=== PATIENT | male | born 1960 | race Caucasian/White ===

== ENCOUNTER 2021-02-24 21:35 | Emergency (ER) | payer OTHER, SELFPAY ==
--- NOTE | ~2021-02-24 | CT_ITS ---
EXAMINATION: CT brain wo con EXAM DATE: 02/24/2021 22:31 INDICATION: Trauma, subarachnoid hemorrhage. TECHNIQUE: Spiral CT of the head was performed without contrast. Axial, coronal and sagittal images were reviewed. The dose-length product (DLP) for this examination was 605.33 mGy-cm. The exposure w as tailored according to patient size, and iterative reconstruction (ASIR) was used as additional dos e reduction technique. There is no prior study for comparison. FINDINGS: Small acute subarachnoid hemorrhage overlying the right frontal lobe near the vertex. Locat ion suggests this is most likely posttraumatic etiology. No other regions of acute intracranial hemor rhage. No extra-axial collections or obstructive hydrocephalus. Mild cerebral atrophy. No brain mass. IMPRESSION: Small acute right subarachnoid hemorrhage, location suggesting traumatic etiology. STAT Rad radiologist phoned, discussed this case with clinician as per documentation in their report, which was faxed and scanned into PACS with this exam. Reviewed, dictated and finalized at location [facility]. IMPRESSION: Small acute right subarachnoid hemorrhage, location suggesting tra umatic etiology. STAT Rad radiologist phoned, discussed this case with clinician as per document ation in their report, which was faxed and scanned into PACS with this exam.
--- NOTE | ~2021-02-24 | XR_ITS ---
EXAMINATION: XR wrist RT min 3V EXAM DATE: 02/24/2021 22:28 INDICATION: Trauma, anteromedial wrist pain. TECHNIQUE: Right wrist frontal, frontal with ulnar deviation, oblique and lateral projections obtain ed and reviewed. There is no prior study for comparison. FINDINGS: Right wrist scapholunate joint space is maintained. Possible acute closed posttraumatic tr iquetral fracture identified on the lateral projection. There is some swelling overlying the wrist. P lease clinically correlate. No other suspicious findings. IMPRESSION: Possible right triquetral fracture. I discussed possible fracture with emergency room physician Dr. Corrales at 02/25/2021 08:17 CDT. Stefanie ent was transferred to another acute care facility for subarachnoid hemorrhage. Reviewed, dictated and finalized at location [facility]. IMPRESSION: Possible right triquetral fracture. I discussed possible fracture with emergency room physician Dr. Corrales at 02/04 08:17 CDT. Patient was transferred to another acute care facility for dooley barachnoid hemorrhage.
[2021-02-24 21:39] VITALS: BP 166/91; PULSE 66; RESP 17; TEMP 36.3; O2SAT 99
--- NOTE | 2021-02-24 22:49 | ED.HEATRA ---
HPI - Head Injury General Chief complaint: Head Injury Stated complaint: Right wrist pain, head injury s/p fall Time Seen by Provider: 02/24/21 22:01 History of Present Illness HPI Narrative: Patient is a 61-year-old male who presents ER status post fall. Patient was playing slip and slide kickball when he lost his footing and fell backwards striking his head and hurting his right wrist. Reports pain and swelling to the dorsal aspect of the wrist. Has increased pain with extension but not with flexion. No numbness or tingling. Patient does take Xarelto given his history of atrial fibrillation. Reports he has developed some very mild headache and has taken Tylenol for this. He has had no loss of consciousness/nausea/vomiting/visual change. Related Data Home Medications Medication Instructions Recorded Confirmed flecainide 02/24/21 metoprolol succinate PO 02/24/21 rivaroxaban [Xarelto] mg 02/24/21 rosuvastatin [Crestor] mg 02/24/21 Allergies Allergy/AdvReac Type Severity Reaction Status Date / Time No Known Drug Allergies Allergy Unknown Unknown Verified 02/24/21 21:51 Review of Systems Review of Systems: All systems reviewed & are unremarkable except as noted in HPI and below Constitutional: Constitutional: Denies chills, Denies fever(s) and Denies weakness Eyes: Eyes: Denies change in vision Respiratory: Respiratory: Denies cough and Denies dyspnea Gastrointestinal: Gastrointestinal: Denies abdominal pain, Denies nausea and Denies vomiting Musculoskeletal: Musculoskeletal: Reports arthralgias, Reports joint swelling and Denies muscle cramps Neurologic: Denies syncope, Reports headache(s), Denies focal weakness and Denies numbness PMFSH Past Medical History Medical History (Updated 02/24/21 @ 22:55 by César Singh MD) Atrial fibrillation Hyperlipidemia Hypertension Surgical History Surgical History (Updated 02/24/21 @ 22:50 by César Singh MD) History of cardiac radiofrequency ablation Social History Social History (Updated 02/24/21 @ 22:50 by César Singh MD) Alcohol intake: current Gender identity (if verbalized by the patient): Male Exam Narrative: GENERAL: Well-appearing, well-nourished, and in no acute distress. HEAD: Normocephalic, atraumatic. Small abrasion front aspect of the scalp within the hair. EYES: PERRL and EOMI. CHEST: Clear to auscultation. No respiratory distress. HEART: Regular rate and rhythm. Normal peripheral pulses. ABDOMEN: Soft, nontender, nondistended. EXTREMITIES: Swelling dorsal aspect right wrist with limitation in extension. No snuff box tenderness. Normal strength. SKIN: Warm, dry, no rash. NEURO: No focal deficits. Alert and oriented x3. PSYCH: Normal mood and affect. Course Reevaluation(s) Reevaluation #1: Spoke with Dr. Knight [facility]. Accepted patient for transfer and requests we preform reversal of Xarelto prior to sending patient to them. Date: 02/24/21 Time: 23:12 Vital Signs Vital signs: Vital Signs Temperature 97.4 F L 02/24/21 21:39 Pulse Rate 66 02/24/21 21:39 Respiratory Rate 17 02/24/21 21:39 Blood Pressure 166/91 H 02/24/21 21:39 Pulse Oximetry 99 02/24/21 21:39 Temperature 97.4 F L 02/24/21 21:39 Pulse Rate 61 02/25/21 03:06 Respiratory Rate 20 02/25/21 03:06 Blood Pressure 122/85 02/25/21 03:06 Pulse Oximetry 98 02/25/21 03:06 MDM - Head Injury Lab Data Result diagrams: 02/24/21 23:17 02/24/21 23:17 Labs: Lab Results 02/24/21 02/24/21 02/24/21 Range/Units 23:17 23:17 23:17 WBC 8.0 (4.5-10.0) K/mm3 RBC 4.17 L (4.6-6.20) M/mm3 Hgb 12.7 L (14.0-18.0) g/dL Hct 38.0 L (42.0-52.0) % MCV 91.1 (80-100) fl MCH 30.5 (26-34) pg MCHC 33.4 (32-36) g/dl RDW 12.9 (11.5-14.5) % Plt Count 209 (150-375) k/mm3 MPV 8.4 (7.4-10.4) fl Immature Gran % (Auto) 0.5 (0-0.5) % Neut % (Auto)
[2021-02-24 23:11] VITALS: BP 159/80; PULSE 65; RESP 25; O2SAT 98
[2021-02-24 23:32] LABS: Basophils Percent Auto 0.4 % (0.2-1.2); Eosinophils Absolute Auto 0.2 K/mm3 (0-0.3); Eosinophils Percent Auto 2.1 % (0-4.4); Hemoglobin 12.7 g/dL (14.0-18.0); Immature Granulocyte Absolute 0.04 K/mm3 (0.00-0.031); Immature Granulocyte Percent A 0.5 % (0-0.5); Lymphocytes Absolute Auto 1.19 K/mm3 (0.9-3.2); Lymphocytes Percent Auto 14.9 % (18.3-44.2); Mean Corpuscular HGB Conc 33.4 g/dl (32-36); Mean Corpuscular Hemoglobin 30.5 pg (26-34); Mean Corpuscular Volume 91.1 fl (80-100); Mean Platelet Volume 8.4 fl (7.4-10.4); Monocytes Absolute Auto 0.5 K/mm3 (0.1-0.6); Monocytes Percent Auto 6.3 % (2.6-8.5); Neutrophils Absolute Auto 6.1 K/mm3 (1.3-6.7); Neutrophils Percent Auto 75.8 % (45.5-73.1); Platelet Count Result 209 k/mm3 (150-375); Red Blood Count 4.17 M/mm3 (4.6-6.20); Red Cell Distribution Width 12.9 % (11.5-14.5)
[2021-02-24 23:42] LABS: INR 1.1; Prothrombin Time 13.9 Seconds (11.1-14.7)
[2021-02-24 23:43] LABS: Partial Thromboplastin Time 31.5 SECONDS (22.3-36.8)
[2021-02-24 23:52] LABS: Anion Gap 8 mmol/L (8-16); Blood Urea Nitrogen 18 mg/dL (9-20); Calcium 9.1 mg/dL (8.4-10.2); Carbon Dioxide 23 mmol/L (22-30); Chloride 100 mmol/L (98-107); Estimated CRCL calculation 92 ml/min; Estimated Glomerular Filt Rate > 60; Glucose 110 mg/dL (65-110); Potassium 4.1 mmol/L (3.4-5.0); Sodium 131 mmol/L (137-145)
[2021-02-24] MEDS: HUMAN PROTHROMBIN COMPLEX(PCC) 5,000 UNITS in PREMIXIV 0 ML 8.4 UNITS IV CONT (23:54)
[2021-02-25 00:03] VITALS: BP 153/73; PULSE 67; RESP 20; O2SAT 96
--- NOTE | 2021-02-25 00:39 | PC.NURSE ---
2336: Called [facility] for ALS transport to [facility]...ETA [id number]
--- NOTE | 2021-02-25 00:40 | PC.NURSE ---
0040: [facility] called with updated ETA...approximately 0735
--- NOTE | 2021-02-25 01:51 | PC.NURSE ---
Called [facility] for status...ETA [id number]
--- NOTE | 2021-02-25 02:17 | PC.NURSE ---
[facility] called with updated ETA...0300
[2021-02-25 02:30] VITALS: BP 148/77; PULSE 60; RESP 23; O2SAT 97
[2021-02-25 03:06] VITALS: BP 122/85; PULSE 61; RESP 20; O2SAT 98
== END 2021-02-25 03:11 | disposition short-term general hospital (02) ==
PROVIDERS: Emergency Provider Emergency Medicine
DX: S06.6X0A Traumatic subarachnoid hemorrhage without loss of consciousness, initial encounter (principal); M25.531 Pain in right wrist; I48.91 Unspecified atrial fibrillation; E78.5 Hyperlipidemia, unspecified; I10 Essential (primary) hypertension; W18.39XA Other fall on same level, initial encounter
CPT/HCPCS: 36415; 70450; 73110; 80048; 85025; 85610; 85730; 96365; 96367; 99291; J0131; J7168

== ENCOUNTER 2021-04-05 11:25 | Emergency (ER) | payer OTHER, SELFPAY ==
[2021-04-05 11:41] VITALS: BP 155/88; PULSE 72; RESP 18; TEMP 37.2; O2SAT 99
--- NOTE | 2021-04-05 11:50 | ED.NAVMDI ---
HPI - Nausea/Vomiting/Diarrhea General Chief complaint: Nausea/Vomiting/Diarrhea Stated complaint: Abdominal Pain,Nausea Source: patient Mode of arrival: ambulatory Limitations: no limitations History of Present Illness HPI Narrative: Patient is a 61-year-old male who presents complaining of right-sided abdominal pain and nausea starting last p.m. Reports lightheadedness starting this a.m. He reports eating old food last p.m. and believes that is what has made him nauseous. He denies vomiting or diarrhea. Patient reports approximately 1 month ago had a fall and had head bleed but has been recently cleared . Patient is on Xarelto. He also reports intermittent hematochezia over the last week. He reports Covid vaccinated x2. MD elicited complaint: nausea and abdominal pain Related Data Home Medications Medication Instructions Recorded Confirmed flecainide 02/24/21 metoprolol succinate PO 02/24/21 rivaroxaban [Xarelto] mg 02/24/21 rosuvastatin [Crestor] mg 02/24/21 Allergies Allergy/AdvReac Type Severity Reaction Status Date / Time No Known Drug Allergies Allergy Unknown Unknown Verified 04/05/21 11:52 Review of Systems Review of Systems: CONSTITUTIONAL: Denies fever, chills, or sweats. EYES: Denies visual changes, redness, or discharge. ENT: Denies rhinorrhea, congestion, sore throat, or otalgia. CARDIOVASCULAR: Denies chest pain, palpitations, or edema. RESPIRATORY: Denies cough or dyspnea. GASTROINTESTINAL: Reports right-sided abdominal pain and nausea. GENITOURINARY: Denies dysuria or hematuria. SKIN: Denies rash or itching. MUSCULOSKELETAL: Denies back pain, joint pain, or myalgia. NEUROLOGIC: Denies headache, numbness, dizziness, or weakness. Reports mild lightheadedness. PSYCHIATRIC: Denies anxiety or depression. [facility] Past Medical History Medical History Atrial fibrillation Hyperlipidemia Hypertension Surgical History Surgical History History of cardiac radiofrequency ablation Hx of cholecystectomy Social History Social History Alcohol intake: current Gender identity (if verbalized by the patient): Male Comments At the time of signature, I have reviewed and agree with nursing past medical, surgical, social, and family history unless otherwise noted. Please see nursing chart for further information. There is no relevant family history pertinent to the presenting complaint. Exam Narrative: GENERAL: Well-appearing, well-nourished, and in no acute distress. HEAD: Normocephalic, atraumatic. EYES: EOMI. No redness or drainage. Conjunctiva are normal. ENT: Mucous membranes pink and moist. CHEST: No respiratory distress. Clear to auscultation. HEART: Regular rate and rhythm. No murmur appreciated. Normal peripheral pulses. GI: Soft, tenderness with palpation, no rebound or guarding. Mild distention. Bowel sounds normal in all quadrants. MUSCULOSKELETAL: No bony tenderness. EXTREMITIES: Normal range of motion. No edema. SKIN: Warm, dry, no rash. NEURO: No focal deficits. Alert and oriented x3. Gait steady. PSYCH: Normal affect. No signs of depression or anxiety. Course Vital Signs Vital signs: Vital Signs Temperature 37.2 C 04/05/21 11:41 Pulse Rate 72 04/05/21 11:41 Respiratory Rate 18 04/05/21 11:41 Blood Pressure 155/88 H 04/05/21 11:41 Pulse Oximetry 99 04/05/21 11:41 Temperature 37.2 C 04/05/21 11:41 Pulse Rate 72 04/05/21 11:41 Respiratory Rate 18 04/05/21 11:41 Blood Pressure 155/88 H 04/05/21 11:41 Pulse Oximetry 99 04/05/21 11:41 Reviewed. Patient has been instructed to follow-up with his PCP regarding his blood pressure. Transfer Transfered to: [facility] Transportation: Other (Private vehicle, patient declined EMS transport and reports that someon
--- NOTE | 2021-04-05 13:04 | PC.NURSE ---
Provider notes faxed to [facility] ED at [phone].
== END 2021-04-05 12:24 | disposition short-term general hospital (02) ==
PROVIDERS: Emergency Provider Nurse Practitioner
DX: R10.31 Right lower quadrant pain (principal); I48.91 Unspecified atrial fibrillation; E78.5 Hyperlipidemia, unspecified; I10 Essential (primary) hypertension
CPT/HCPCS: 99212; G0463